=== PATIENT | female | born 1950 | race Caucasian/White ===

== ENCOUNTER 2017-04-06 07:01 | Day surgery (SDC) | payer MEDICARE, OTHER ==
[~2017-04-06] VITALS: Ht 152.4 cm; Wt 73.8 kg
[~2017-04-06 07:01] MED LIST: ALEN70TA30 PO; ATOR80TA75 PO; BENA10TA48 PO; CHOL100062 PO; MTF1000T PO; NAPR-688 PO; SITA50TA2 PO
[2017-04-06] MEDS ORDERED: PROPOFOL 40 ML ONE (08:38)
[2017-04-06] MEDS ORDERED: LIDOCAINE 100 MG SYRINGE ONE (08:38)
[2017-04-06] MEDS ORDERED: FENTAnyl 50 MCG/ML VIAL ONE (08:38)
[2017-04-06 08:50] VITALS: BP 147/65; PULSE 78; RESP 18
[2017-04-06 08:55] VITALS: Ht 152.4 cm; Wt 73.8 kg
--- NOTE | 2017-04-06 09:40 | OPPN ---
Date/Time of Note Date/Time of Note DATE: 04/06/17 TIME: 09:38 Operative Report Preoperative Diagnosis Abdominal pain Chronic heartburn Screening colonoscopy Postoperative Diagnosis Reflux esophagitis with erosions Gastritis with erosions Nodule on the gastric antrum and biopsies were taken Internal hemorrhoids No colon neoplasm was identified Operation/Procedure Performed Esophagogastroduodenoscopy and biopsy Colonoscopy Surgeon see signature line seismic survey assistant None Anesthesia: MAC Estimated blood loss: none Transfusion Required none Specimen biopsy of the gastric nodule Grafts/Implants none Complications none GIO SALAZAR MD Apr 06, 2017 09:40
[2017-04-06 10:15] VITALS: BP 138/81; PULSE 69; RESP 18
--- NOTE | 2017-04-07 05:08 | GILP ---
DATE OF PROCEDURE: NAME OF PROCEDURES: 1. Esophagogastroduodenoscopy and biopsy. 2. Colonoscopy. SURGEON: Gio Cameron MD. PREOPERATIVE DIAGNOSES: 1. Abdominal pain. 2. Chronic heartburn. 3. Screening colonoscopy. POSTOPERATIVE DIAGNOSES 1. Reflux esophagitis with erosions. 2. Gastritis with erosions. 3. Gastric nodule on the antrum and biopsies were taken for histopathology. 4. Colonoscopy all the way to the cecum. 5. Internal hemorrhoids. 6. No colon neoplasm was identified. INDICATION FOR THE PROCEDURE: Ms. Megha Kovacs is a 67-year-old female patient who had u pper abdominal pain and chronic heartburn not responding to therapy. She also needed screening colo noscopy. The procedures and possible complications were well explained to the patient. The patient understoo d and consented to the procedure. DESCRIPTION OF PROCEDURE: Under the influence of anesthesia, the gastroscope was carefully introduc ed into the esophagus and under direct vision, it was advanced to the stomach and through the pyloru s into the duodenal bulb and descending duodenum. FINDINGS: ESOPHAGUS: The patient had reflux esophagitis with erosions at the lower end. STOMACH: The patient had gastritis with erosions. She had a gastric nodule on the gastric antrum a nd biopsies were taken for histopathology. DUODENUM: Normal. The colonoscope was carefully introduced in the rectum and under direct vision, it was advanced all the way to the cecum. FINDINGS: The patient had internal hemorrhoids. No colon neoplasm was identified. She tolerated the procedures very well and there was no complication from the procedures. At the en d of the procedures, she was awake with stable vital signs and she was discharged home to the care o f her family. IMPRESSION: Please see postoperative diagnoses. PLAN: 1. Omeprazole 40 mg p.o. q.a.m. 2. Zantac 300 mg p.o. at bedtime. 3. Await histopathology report. 4. Next screening colonoscopy in 10 years. Dictated By: GIO WATERS/FLOYD Conf#: [id number] DID#: [id number]
== END 2017-04-06 11:24 | disposition home or self-care (01) ==
LOC: GIL 07:01
PROVIDERS: ATTEND Internal Medicine Gastroenterology
DX: R19.4 Change in bowel habit (principal); K29.50 Unspecified chronic gastritis without bleeding; K21.0 Gastro-esophageal reflux disease with esophagitis; K64.8 Other hemorrhoids; E11.9 Type 2 diabetes mellitus without complications
CPT/HCPCS: 43239; 45378; 82962; 88305; 88312; J2001; J3010